=== PATIENT | male | born 1955 | race Caucasian/White ===

== ENCOUNTER 2018-09-20 12:09 | Day surgery (SDC) | payer MEDICARE, BC, OTHER ==
[2018-09-20] MEDS ORDERED: PROPOFOL 10 MG/ML VIAL IV ONE (12:10)
[2018-09-20] MEDS ORDERED: LIDOCAINE 2% MDV (20MG/ML) 20ML VIAL IV ONE (12:10)
--- NOTE | 2018-09-21 08:41 | Operative Note ---
OPERATION: COLONOSCOPY with cold snare polypectomy, hemoclip application, and ink injection. PREOPERATIVE DIAGNOSIS: Colon cancer screening. POSTOPERATIVE DIAGNOSES: 1. Severe sigmoid diverticulosis. 2. Sessile descending colon polyp. PREPARATION QUALITY: Good. ESTIMATED BLOOD LOSS: Minimum. PROCEDURE: After informed consent was obtained from the patient, he was placed in the left lateral decubitus position in the endoscopy suite, sedated and monitored by the department of anesthesia. Digital rectal exam was unremarkable. A well-lubricated KCY129 colonoscope was inserted into the rectum and advanced to the cecum. Preparation quality was good. The cecum, cecal bulb, ileocecal valve, appendiceal orifice, ascending colon, and transverse colon were unremarkable. The descending colon revealed a sessile polyp which was approximately 1.4 cm removed in piecemeal fashion with a cold snare. Two hemoclips were applied to the site. Ink was injected for future localization purposes. I injected 1 mL subcutaneously just proximal and just distal to the polypectomy site. There was no bleeding after the clips had been placed. There was scant bleeding prior to the clips placed. The sigmoid colon demonstrated severe diverticular changes. No obvious inflammation was seen. The remainder of the sigmoid colon and rectum were otherwise unremarkable. J-turn views of the anorectum were unrevealing. The endoscope was straightened, the rectal ampulla deflated, and the endoscope was removed. RECOMMENDATIONS: I would suggest the patient follow a low-fiber diet for the next week and a high-fiber diet thereafter. He will require repeat exam in 1-3 years pending tissue histology. As always, thank you for allowing me to participate in the healthcare of your patients. [id number]
== END 2018-09-20 14:10 | disposition home or self-care (01) ==
LOC: HOP 12:09
PROVIDERS: ATTEND Internal Medicine Gastroenterology
DX: Z12.11 Encounter for screening for malignant neoplasm of colon (principal); D12.4 Benign neoplasm of descending colon; K57.30 Diverticulosis of large intestine without perforation or abscess without bleeding; I10 Essential (primary) hypertension
CPT/HCPCS: 80048